=== PATIENT | female | born 1955 | race Caucasian/White ===

== ENCOUNTER 2020-08-09 09:53 | Inpatient (IN) | payer OTHER ==
[~2020-08-09] VITALS: Ht 165.1 cm; Wt 62.0 kg
[2020-08-09] MEDS ORDERED: METOPROLOL TARTRATE 25 MG TAB PO ONE (10:30)
[2020-08-09] MEDS ORDERED: METOPROLOL TARTRATE 25 MG TAB ONE (10:33)
[2020-08-09 10:48] LABS: BASOPHILS % (AUTO) 1 % (0-1); EOSINOPHILS % (AUTO) 1 % (1-7); LYMPHOCYTES % (AUTO) 29 % (22-44); MD NO; MEAN CORPUSCULAR HEMOGLOBIN 31.4 pg (27.0-34.8); MEAN CORPUSCULAR HGB CONC 33.9 g/dL (32.4-35.8); MEAN PLATELET VOLUME 6.8 fL (7.4-10.4); MONOCYTES % (AUTO) 8 % (2-9); NEUTROPHILS % (AUTO) 62 % (42-75); PLATELET COUNT 331 x10^3/uL (130-400); RED BLOOD COUNT 4.78 x10^6/uL (3.82-5.3)
[2020-08-09 11:00] LABS: ALANINE AMINOTRANSFERASE 23 U/L (12-78); ALBUMIN 3.6 g/dL (3.4-5.0); ANION GAP 5 mmol/L (5-15); CHLORIDE 111 mmol/L (98-107); CREATININE 0.83 mg/dL (0.55-1.02)
[2020-08-09 11:05] LABS: ALKALINE PHOSPHATASE 59 U/L (45-117); BILIRUBIN,TOTAL 0.9 mg/dL (0.2-1.0)
--- NOTE | 2020-08-09 13:00 | NUR ---
[facility] RPT REC'D AND PT CARE ASSUMED. PT VSS, NAD NOTED AND PT DENIES ANY DISORIENTATION AT THIS TIME. CALL LIGHT W/I REACH. PT AWARE OF PLAN FOR ADMIT.
--- NOTE | 2020-08-09 13:01 | NUR ---
REPORT TO PATRICK MARLOW.
[2020-08-09] MEDS ORDERED: ONDANSETRON 2MG/ML, 2ML IVPush PRN (14:30)
[2020-08-09] MEDS ORDERED: TRAZODONE 50MG TABLET PO PRN (14:30)
[2020-08-09] MEDS ORDERED: ACETAMINOPHEN 325 MG TABLET PO PRN (14:30)
[2020-08-09] MEDS ORDERED: DOCUSATE 100 MG CAPSULE PO PRN (14:30)
[2020-08-09] MEDS ORDERED: ONDANSETRON ODT 4 MG PO PRN (14:30)
[2020-08-09] MEDS ORDERED: ENALAPRILAT 1.25 MG/ML, 2ML IVPush PRN (14:30)
[2020-08-09] MEDS ORDERED: hydrALAzine 20 MG/ML, 1ML IVPush PRN (14:30)
[2020-08-09] MEDS ORDERED: GABAPENTIN 300 MG CAPSULE PO PRN (14:30)
[2020-08-09] MEDS ORDERED: morphine SULFATE 10 MG/ML, 1ML IVPush PRN (14:30)
--- NOTE | 2020-08-09 14:34 | NUR ---
PT TO MRI WITH TECH TRANSPORT
[2020-08-09 16:28] VITALS: BP 113/79
[2020-08-09] MEDS: METOPROLOL TARTRATE 25 MG TAB PO SCH ×2 (17:10→22:28)
[2020-08-09] MEDS: APIXABAN 5 MG TABLET PO SCH (20:56)
[2020-08-09 20:58] VITALS: BP 95/63
[2020-08-09] MEDS ORDERED: MELATONIN 5 MG TABLET PO PRN (21:00)
[2020-08-09] MEDS ORDERED: ATORVASTATIN 80 MG TABLET PO SCH (21:00)
[2020-08-10 04:00] VITALS: BP 105/72
[2020-08-10 05:52] LABS: BASOPHILS % (AUTO) 1 % (0-1); EOSINOPHILS % (AUTO) 2 % (1-7); LYMPHOCYTES % (AUTO) 43 % (22-44); MEAN CORPUSCULAR HEMOGLOBIN 31.3 pg (27.0-34.8); MEAN CORPUSCULAR HGB CONC 33.9 g/dL (32.4-35.8); MEAN PLATELET VOLUME 7.2 fL (7.4-10.4); MONOCYTES % (AUTO) 7 % (2-9); NEUTROPHILS % (AUTO) 47 % (42-75); PLATELET COUNT 303 x10^3/uL (130-400); RED BLOOD COUNT 4.77 x10^6/uL (3.82-5.3); RED CELL DISTRIBUTION WIDTH 13.8 % (9.6-15.2)
[2020-08-10 05:56] LABS: ANION GAP 3 mmol/L (5-15); CALCIUM 8.5 mg/dL (8.5-10.1); CHLORIDE 110 mmol/L (98-107); CHOLESTEROL, TOTAL 164 mg/dL (140-239)
[2020-08-10 05:58] LABS: MD NO
[2020-08-10] MEDS ORDERED: ASPIRIN 325 MG TABLET EC PO SCH (06:00)
[2020-08-10 06:07] LABS: CHOL/HDL RATIO 2.2; HDL CHOL % 46 % (28-40); HDL CHOLESTEROL (DIRECT) 75 mg/dL (40-60); LDL CHOLESTEROL,CALCULATED 72 mg/dL (54-169); TRIGLYCERIDES 83 mg/dL (50-200); VLDL CHOLESTEROL 17 mg/dL (0-25)
[2020-08-10 07:46] VITALS: BP 96/64
[2020-08-10] MEDS: APIXABAN 5 MG TABLET PO SCH (08:06)
[2020-08-10] MEDS: METOPROLOL TARTRATE 25 MG TAB PO SCH (08:06)
[2020-08-10] MEDS ORDERED: APIX5TAB PO (10:50)
[2020-08-10] MEDS ORDERED: METO-282 PO ×2 (10:51→11:09)
[2020-08-10] MEDS ORDERED: CALC-777 PO (10:52)
[2020-08-10] MEDS ORDERED: CHOL10003 PO (10:52)
[2020-08-10] MEDS ORDERED: MULT-658 PO (10:54)
[2020-08-10] MEDS ORDERED: TURM500C4 PO (10:54)
[2020-08-10 12:24] VITALS: BP 91/63
== END 2020-08-10 12:55 | disposition home or self-care (01) | DRG 71 ==
LOC: ED 10:47 → SUATTDRO 12:05 → EDIP 12:14 → 4EST 16:02
PROVIDERS: ADMIT Hospitalist; ATTEND Hospitalist
DX: G93.41 Metabolic encephalopathy (principal); G45.9 Transient cerebral ischemic attack, unspecified; I48.91 Unspecified atrial fibrillation; Z80.3 Family history of malignant neoplasm of breast
CPT/HCPCS: 36415; 70450; 70551; 71045; 80048; 80053; 80061; 84443; 85025; 93005; 99285; G0378; 92523-GN

== ENCOUNTER → 2020-10-25 | Outpatient (CLI) | payer OTHER ==
[~2020-10-25] MED LIST: APIX5TAB PO; CALC-777 PO; CHOL10003 PO; METO-282 PO; MULT-658 PO; TURM500C4 PO
== END | disposition home or self-care (01) ==
LOC: RAD 15:30
PROVIDERS: ATTEND Internal Medicine Cardiovascular Disease
DX: I48.11 Longstanding persistent atrial fibrillation (principal); I63.9 Cerebral infarction, unspecified
CPT/HCPCS: 71046

== ENCOUNTER → 2020-10-25 | Outpatient (CLI) | payer OTHER ==
[~2020-10-25] MED LIST changes: +OMNIPAQUE 350 MG/ML, 150 ML BOTTLE ONE
== END | disposition home or self-care (01) ==
LOC: CFH 14:29
PROVIDERS: ATTEND Internal Medicine Clinical Cardiac Electrophysiology
DX: I48.11 Longstanding persistent atrial fibrillation (principal); I63.9 Cerebral infarction, unspecified
CPT/HCPCS: 75572; 82565; Q9967

== ENCOUNTER 2020-10-29 11:19 | Inpatient (IN) | payer OTHER ==
[~2020-10-29] VITALS: Ht 165.1 cm; Wt 67.1 kg
[~2020-10-29 11:19] MED LIST changes: -OMNIPAQUE 350 MG/ML, 150 ML BOTTLE ONE
[2020-10-29 11:59] VITALS: BP 105/69
[2020-10-29 12:00] VITALS: BP 105/69
[2020-10-29] MEDS ORDERED: SODIUM CHLORIDE 0.9% 1,000 ML IV SCH (12:00)
[2020-10-29 12:04] LABS: BASOPHILS % (AUTO) 1 % (0-1); EOSINOPHILS % (AUTO) 2 % (1-7); LYMPHOCYTES % (AUTO) 35 % (22-44); MEAN CORPUSCULAR HEMOGLOBIN 30.8 pg (27.0-34.8); MEAN CORPUSCULAR HGB CONC 33.6 g/dL (32.4-35.8); MONOCYTES % (AUTO) 9 % (2-9); NEUTROPHILS % (AUTO) 53 % (42-75); PLATELET COUNT 302 x10^3/uL (130-400); RED BLOOD COUNT 4.62 x10^6/uL (3.82-5.3); RED CELL DISTRIBUTION WIDTH 13.7 % (9.6-15.2)
[2020-10-29 12:17] LABS: ANION GAP 7 mmol/L (5-15); CHLORIDE 113 mmol/L (98-107)
[2020-10-29 12:19] LABS: CREATININE 0.78 mg/dL (0.55-1.02)
[2020-10-29 12:20] LABS: INTERNATIONAL NORMALIZED RATIO 0.96 (0.93-1.1); PROTHROMBIN TIME 10.3 Seconds (9.6-11.5)
[2020-10-29] MEDS ORDERED: FENTANYL PF 250 MCG/5ML ONE (12:31)
[2020-10-29] MEDS ORDERED: PROPOFOL 10 MG/ML, 20ML ONE (12:31)
[2020-10-29] MEDS ORDERED: ROCURONIUM 10MG/ML,5ML ONE (12:31)
[2020-10-29] MEDS ORDERED: MIDAZOLAM 1 MG/ML, 2ML ONE (12:31)
[2020-10-29] MEDS ORDERED: ONDANSETRON 2MG/ML, 2ML ONE (12:33)
[2020-10-29] MEDS ORDERED: PHENYLEPHRINE 10 MG/ML ONE (12:33)
[2020-10-29] MEDS ORDERED: DEXAMETHASONE 4 MG/ML, 1ML ONE ×2 (13:11→13:39)
[2020-10-29] MEDS ORDERED: HEPARIN 1,000 UNITS/ML, 10ML ONE ×3 (13:39→14:41)
[2020-10-29] MEDS ORDERED: FENTANYL PF 100 MCG/2ML ONE ×2 (14:24→16:00)
[2020-10-29] MEDS ORDERED: DIPHENHYDRAMINE 50 MG/ML, 1ML ONE (16:59)
[2020-10-29] MEDS ORDERED: OXYcodone 5 MG/5 ML ORAL.SOL UDC PO PRN (17:30)
[2020-10-29] MEDS ORDERED: MIDAZOLAM 1 MG/ML, 2ML IV PRN (17:30)
[2020-10-29] MEDS ORDERED: MEPERIDINE/PF 25MG/0.5ML IVPush PRN (17:30)
[2020-10-29] MEDS ORDERED: LABETALOL 5MG/ML, 20ML IV PRN (17:30)
[2020-10-29] MEDS ORDERED: DIAZEPAM 5 MG/ML, 2ML IVPush PRN (17:30)
[2020-10-29] MEDS ORDERED: EPHEDRINE 50 MG/ML, 1ML IVPush PRN (17:30)
[2020-10-29] MEDS ORDERED: PROMETHAZINE 25 MG/ML, 1ML IVPush PRN (17:30)
[2020-10-29] MEDS ORDERED: ONDANSETRON 2MG/ML, 2ML IVPush PRN ×2 (17:30)
[2020-10-29] MEDS ORDERED: DIPHENHYDRAMINE 50 MG/ML, 1ML IVPush PRN ×2 (17:30)
[2020-10-29] MEDS ORDERED: HYDROmorphone 1 MG/ML, 1ML INJ IVPush PRN (17:30)
[2020-10-29] MEDS ORDERED: ACETAMINOPHEN 325 MG TABLET PO PRN ×2 (17:30)
[2020-10-29] MEDS ORDERED: LORazepam 2 MG/ML, 1ML IVPush PRN (17:30)
[2020-10-29] MEDS ORDERED: FENTANYL PF 100 MCG/2ML IV PRN (17:30)
[2020-10-29] MEDS ORDERED: PROMETHAZINE 12.5 MG SUPP PR PRN (17:30)
[2020-10-29] MEDS ORDERED: ALBUTEROL SULFATE 2.5 MG/3 ML NPPB PRN (17:30)
[2020-10-29] MEDS ORDERED: hydrALAzine 20 MG/ML, 1ML IV PRN (17:30)
[2020-10-29] MEDS: APIXABAN 5 MG TABLET PO SCH ×2 (18:00→22:32)
[2020-10-29] MEDS ORDERED: APIXABAN 5 MG TABLET ONE (18:20)
[2020-10-29 20:00] VITALS: BP 96/60
[2020-10-29] MEDS ORDERED: ZOLPIDEM 5MG TABLET PO PRN (21:00)
[2020-10-29] MEDS: COLCHICINE 0.6 MG CAPSULE PO SCH (22:32)
[2020-10-30 00:40] VITALS: BP 90/53
[2020-10-30 05:59] VITALS: BP 99/52
[2020-10-30] MEDS: SOTALOL 80MG TABLET PO SCH (06:00)
[2020-10-30] MEDS: PANTOPRAZOLE 20MG TABLET PO SCH (06:00)
[2020-10-30 06:40] VITALS: BP 98/63
[2020-10-30] MEDS: APIXABAN 5 MG TABLET PO SCH ×2 (08:19→21:13)
[2020-10-30] MEDS: COLCHICINE 0.6 MG CAPSULE PO SCH ×2 (08:19→21:13)
[2020-10-30 14:33] VITALS: BP 90/58
[2020-10-30 17:33] VITALS: BP 85/49
[2020-10-30 19:38] VITALS: BP 95/60
[2020-10-30] MEDS ORDERED: SOTALOL 80MG TABLET PO ONE (20:30)
[2020-10-31 01:15] VITALS: BP 97/62
[2020-10-31 05:58] VITALS: BP 97/62
[2020-10-31] MEDS: PANTOPRAZOLE 20MG TABLET PO SCH (06:01)
[2020-10-31] MEDS: SOTALOL 80MG TABLET PO SCH ×2 (06:02→18:02)
[2020-10-31] MEDS: COLCHICINE 0.6 MG CAPSULE PO SCH ×2 (09:20→20:47)
[2020-10-31] MEDS: APIXABAN 5 MG TABLET PO SCH ×2 (09:20→20:47)
[2020-10-31 09:21] VITALS: BP 93/60
[2020-10-31 13:37] VITALS: BP 106/69
[2020-10-31 18:02] VITALS: BP 97/60
[2020-10-31 19:50] VITALS: BP 98/62
[2020-11-01 02:01] VITALS: BP 100/64
[2020-11-01 06:25] VITALS: BP 102/64
[2020-11-01] MEDS: PANTOPRAZOLE 20MG TABLET PO SCH (06:26)
[2020-11-01] MEDS: SOTALOL 80MG TABLET PO SCH (06:26)
[2020-11-01] MEDS: APIXABAN 5 MG TABLET PO SCH (07:50)
[2020-11-01] MEDS: COLCHICINE 0.6 MG CAPSULE PO SCH (07:50)
[2020-11-01] MEDS ORDERED: COLC0.6C3 PO (09:03)
[2020-11-01] MEDS ORDERED: SOTA80TA18 PO (09:03)
[2020-11-01] MEDS ORDERED: PANT20TA4 PO (09:03)
== END 2020-11-01 10:55 | disposition home or self-care (01) | DRG 274 ==
LOC: CACL 11:19 → ORIP 17:07 → 5SO 17:11 → OBSVTOIN 10-30 12:09
PROVIDERS: ADMIT Internal Medicine Clinical Cardiac Electrophysiology; ATTEND Internal Medicine Clinical Cardiac Electrophysiology
PROC: 02K83ZZ Map Conduction Mechanism, Percutaneous Approach (ICD-10-PCS; 2020-10-29)
PROC: 02583ZZ Destruction of Conduction Mechanism, Percutaneous Approach (ICD-10-PCS; principal; 2020-10-29 13:00)
DX: I48.11 Longstanding persistent atrial fibrillation (principal); I95.9 Hypotension, unspecified; I48.92 Unspecified atrial flutter; Z87.891 Personal history of nicotine dependence; Z79.01 Long term (current) use of anticoagulants; Z20.822 Contact with and (suspected) exposure to COVID-19
CPT/HCPCS: 36415; 80048; 85025; 85347; 85610; 93005; 93306; 93312; 93321; 93325; 93613; 93656; 93657; 93662; C1732; C1766; C1893; C1894; G0378; J1100; J1644; J2250; J2405; J2704; J3010; U0005; C1730; C1759; J1200; J2370; U0003